=== PATIENT | male | born 1980 | race Caucasian/White ===

== ENCOUNTER 2017-11-14 19:17 | Emergency (ER) | payer BC, OTHER ==
[~2017-11-14] VITALS: Ht 185.4 cm; Wt 113.4 kg
[~2017-11-14 19:17] MED LIST: CHOL10002 PO; Folic Acid PO; Gabapentin PO; HYDR-3895 PO; PROP20TA19 PO
--- NOTE | 2017-11-14 19:30 | NUR ---
Patient brought in by father, patient was outside the ER on the floor, has difficulty getting up, father states pt has been drinking vodka and [facility].
--- NOTE | 2017-11-14 19:35 | NUR ---
Dr. Hadley at bedside for MSE.
[2017-11-14] MEDS ORDERED: IV NORMAL SALINE 1000 ML BAG IV ONE (19:45)
[2017-11-14] MEDS ORDERED: LORAZEPAM 2 MG/1 ML VIAL IV ONE (19:45)
[2017-11-14 19:52] LABS: BASOPHILS # (AUTO) 0.1 K/uL (0.0-8.0); BASOPHILS % (AUTO) 1.4 % (0.0-2.0); EOSINOPHILS # (AUTO) 0.1 K/uL (0.0-0.7); HEMATOCRIT 47.8 % (36.7-47.1); HEMOGLOBIN 16.9 g/dL (12.5-16.3); LYMPHOCYTES % (AUTO) 36.1 % (20.5-51.5); MEAN CORPUSCULAR HEMOGLOBIN 34.4 uug (23.8-33.4); MEAN CORPUSCULAR HGB CONC 35 g/dL (32.5-36.3); MEAN CORPUSCULAR VOLUME 97.5 fL (73.0-96.2); MONOCYTES # (AUTO) 0.6 K/uL (2.0-10.0); MONOCYTES % (AUTO) 10.2 % (0.0-11.0); NEUTROPHILS # (AUTO) 2.8 K/uL (1.8-8.9); NEUTROPHILS % (AUTO) 51.3 % (38.5-71.5); PLATELET COUNT (AUTO) 244 K/uL (152-348); WHITE BLOOD COUNT (AUTO) 5.5 K/uL (3.6-10.2)
[2017-11-14] MEDS ORDERED: LORAZEPAM 2 MG/1 ML VIAL ONE (19:54)
[2017-11-14 20:00] LABS: CARBON DIOXIDE 29 mmol/L (21-32); CHLORIDE 102 mmol/L (98-107); CREATININE 0.9 mg/dL (0.6-1.3); GLUCOSE 107 mg/dL (74-106); POTASSIUM 3.6 mmol/L (3.5-5.1); UREA NITROGEN, BLOOD 3 mg/dL (7-18)
--- NOTE | 2017-11-14 20:08 | NUR ---
Patient provided urine sample, sent to lab.
[2017-11-14 20:13] LABS: *BILIRUBIN,URIN NEGATIVE (NEGATIVE); *BLOOD, URINE NEGATIVE (NEGATIVE); *CLARITY,URINE CLEAR (CLEAR); *COLOR,URINE YELLOW (YELLOW); *KETONES,URINE NEGATIVE (NEGATIVE); *PROTEIN,URINE NEGATIVE (NEGATIVE); *UROBILINOGEN,URINE 0.2 E.U./dl (NORMAL); LEUKOCYTE ESTERASE ,URINE NEGATIVE (NEGATIVE); NITRITE, URINE NEGATIVE (NEGATIVE); PH,URINE 6.5 (5.0-8.0); UGLUCOSE NEGATIVE (NEGATIVE)
[2017-11-14 20:14] LABS: ALANINE AMINOTRANSFERASE 150 U/L (16-63); ALKALINE PHOSPHATASE 100 U/L (50-136); ASPARTATE AMINOTRANSFERASE 132 U/L (15-37); BILIRUBIN,DIRECT 0.2 mg/dL (0.0-0.2); BILIRUBIN,TOTAL 0.5 mg/dL (0.2-1.0); TOTAL PROTEIN, SERUM 7.2 g/dL (6.4-8.2)
[2017-11-14 20:16] LABS: ACETAMINOPHEN < 2.0 ug/mL (10-30)
[2017-11-14 20:17] LABS: ETHANOL 399 MG/DL (0-0)
--- NOTE | 2017-11-14 20:18 | NUR ---
Lab called, pt alcohol level 0.40. notified.
[2017-11-14 20:20] LABS: RBC,URINE 0-3 /HPF (0-3); WBC,URINE 0-3 /HPF (0-3)
[2017-11-14 20:21] LABS: BACTERIA,URINE FEW /HPF (NONE SEEN); SQUAMOUS EPITHELIAL CELL,UR FEW /HPF (NONE SEEN)
[2017-11-14 20:28] LABS: *AMPHETAMINE, URINE NEGATIVE (NEGATIVE); *BARBITURATE, URINE NEGATIVE (NEGATIVE); *CANNABINOID, URINE POSITIVE (NEGATIVE); *COCCAINE, URINE NEGATIVE (NEGATIVE); *OPIATE, URINE NEGATIVE (NEGATIVE); *PHENCYCLIDINE SCREEN,URINE NEGATIVE (NEGATIVE)
--- NOTE | 2017-11-14 20:50 | NUR ---
Pt pulled IV and ambulated outside unwitnessed, pt found smoking cigarrette on sidewalk. Brought patient back to ER via wheelchair. No injuries or acute signs of distress noted.
[2017-11-14] MEDS ORDERED: HYDROCODONE/APAP 10-325 MG TABLET ONE (20:57)
--- NOTE | 2017-11-14 21:14 | NUR ---
Patient discharged to home in stable conditon. Father states will try to take him to [facility] tonight. Written and verbal after care instructions given. Patient verbalizes understanding of instructions. Patient ambulated out of ER with unsteady gait, accompanied by father, no acute signs of distress, VSS, all belongings taken.
[2017-11-14 21:17] VITALS: BP 111/72
== END 2017-11-14 21:17 | disposition home or self-care (01) ==
LOC: ER 19:20
DX: F10.129 Alcohol abuse with intoxication, unspecified (principal); Y90.8 Blood alcohol level of 240 mg/100 ml or more; Z91.030 Bee allergy status
CPT/HCPCS: 36415; 80048; 80076; 80307; 81001; 85025; 96374; 99284; A4663; G0480 ×2; G0481; J2060; J7030